=== PATIENT | male | born 1955 | race Caucasian/White ===

== ENCOUNTER → 2017-03-13 | Outpatient (CLI) | payer MEDICARE | END | disposition home or self-care (01) | LOC: RADMRIMAIN 07:56 | PROVIDERS: ATTEND Psychiatry & Neurology Pain Medicine | DX: Z53.9 Procedure and treatment not carried out, unspecified reason (principal) ==

== ENCOUNTER → 2020-04-25 | Outpatient (CLI) | payer MEDICARE, OTHER | END | disposition home or self-care (01) | LOC: LABWHC1 16:03 | PROVIDERS: ATTEND Internal Medicine | DX: Z20.828 Contact with and (suspected) exposure to other viral communicable diseases (principal) | CPT/HCPCS: U0003; C9803 ==

== ENCOUNTER → 2021-04-24 | Outpatient (CLI) | payer MEDICARE, OTHER ==
[2021-04-24 08:06] LABS: African American GFR (CKD) >90 (>60 ml/min/1.73 sqM); Blood Urea Nitrogen 18 mg/dL (9-20); Non-African American GFR(CKD) >90 (>60 ml/min/1.73 sqM)
--- NOTE | 2021-04-24 10:48 | CT ---
EXAMINATION TYPE: CT lumbar spine wo/w con DATE OF EXAM: 04/24/2021 COMPARISON: Lumbar spine x-ray February 20, 2015 HISTORY: lower back pain CT DLP: 5486.70 mGycm Automated exposure control for dose reduction was used. CONTRAST: CT scan of the lumbar is performed without and with IV Contrast, patient injected with 100 mL of Isov ue 300. Enhanced CT of the lumbar spine was performed. Bone and soft tissue window settings are submitted as well as coronal and sagittal reconstructions. There are 5 lumbar-type vertebra redemonstrated. New posterior interpedicular rods and screws transfi x L2-L5 levels bilaterally. New Metallic disc material at L2-L3 and L4-L5 levels with endplate scler osis. There is grade 1 retrolisthesis L2 on L3 on current study. There is subtle grade 1 retrolisthes is L1 on L2. Vgcq-ya-[id number] disc space narrowing with vacuum disc phenomenon L5-S1 level. Vertebral body heights are maintained. Axial images show T12-L1 level to appear within normal limits. Axial images at L1-L2 level show spondylolisthesis with [id number] broad disc bulge mildly effa cing the anterior thecal sac, bilateral neural foramina are patent. Axial images at the L2-L3 level show artifact from surgical change. Spinal canal grossly preserved. S pondylolisthesis noted. Axial images at L3-L4 level shows mild broad-based disc bulge mildly effacing anterior thecal sac. Mi ld facet arthropathy and ligamentum flavum hypertrophy. There is mild right-sided inferior neural for aminal narrowing. Axial images at L4-L5 level show surgical changes. This causes artifact making evaluation suboptimal. Spinal canal grossly preserved. Axial images at L5-S1 level mild facet arthropathy. There is artifact from surgical change. Spinal ca nal preserved. Patent bilateral neural foramina. No suspicious postcontrast enhancement is seen. Mild to moderate calcified plaque along course of the distal abdominal aorta extends into iliac branch vessels. IMPRESSION: Postsurgical changes L2 through the L5 levels. Spondylolisthesis and multilevel degenerat inessa changes as detailed above
== END | disposition home or self-care (01) ==
LOC: RADCTMAIN 07:20
PROVIDERS: ATTEND Psychiatry & Neurology Neurology
DX: M43.16 Spondylolisthesis, lumbar region (principal); M47.817 Spondylosis without myelopathy or radiculopathy, lumbosacral region; M51.36 Other intervertebral disc degeneration, lumbar region
CPT/HCPCS: 82565; 84520; 72133; 36415; Q9967

== ENCOUNTER → 2023-12-10 | Outpatient (CLI) | payer MEDICARE, OTHER | END | disposition home or self-care (01) | LOC: LABWHC1 11:58 | PROVIDERS: ATTEND Nurse Practitioner Family | DX: Z71.3 Dietary counseling and surveillance (principal) | CPT/HCPCS: 36415; 82747 ==